=== PATIENT | male | born 1950 | race Caucasian/White ===

== ENCOUNTER → 2019-06-11 13:28 | Outpatient (CLI) | payer OTHER, SELFPAY ==
--- NOTE | 2019-06-11 13:39 | MR_ITS ---
PROCEDURE: MR HEAD/BRAIN WO CON CLINICAL INDICATION: UNSPECIFIED DEMENTIA W/OUT BEHAVIORAL DISTURBANCE Early dementia, confusion, memory loss COMPARISON: No exams were available for comparison TECHNIQUE: Routine multiplanar multi echo sequences are performed without gadolinium enhancement. FINDINGS: No midline shift, mass effect, intracranial hemorrhage, or hydrocephalus is evident. No evidence of acute cortical infarction. There is moderate generalized atrophy with nonspecific increased T2 signal in the periventricular and subcortical region consistent with ischemic gliotic change from microvascular disease. The ventricles are somewhat prominent but is felt to be related to ex vacuo dilatation from the overlying atrophy. The cerebellopontine angle, cerebellum, and brainstem are unremarkable. The pituitary, optic chiasm, corpus callosum, and craniocervical junction have an unremarkable appearance. There is mild mucosal thickening of the maxillary sinuses. There is bilateral mastoid effusions. IMPRESSION: The 1. No acute intracranial findings. 2. Atrophy with chronic ischemic changes. 3. Bilateral mastoid and maxillary sinus disease Dictated by: Paulino Crump MD 06/12/2019 10:21 Electronically signed by Paulino Crump MD in [place] 06/12/2019 10:21
== END ==
DX: F03.90 Unspecified dementia, unspecified severity, without behavioral disturbance, psychotic disturbance, mood disturbance, and anxiety (principal)
CPT/HCPCS: 70551